=== PATIENT | female | born 1995 | race American Indian/Alaskan Native ===

== ENCOUNTER 2020-10-11 12:39 | Emergency (ER) | payer SELFPAY ==
[2020-10-11] MEDS ORDERED: ZIPRASIDONE MESYLATE 20 MG VIAL IM ONE (12:53)
--- NOTE | 2020-10-11 12:59 | Emergency Department Report ---
ED Psych HPI - General Stated Complaint: AMS Time Seen by Provider: 10/11/20 12:53 - History of Present Illness Initial Comments: Patient is 24 years old female with no significant past medical history or psychiatric history. Patient brought to the emergency room via EMS from home after patient father called and stated that patient has been with significant altered mental status. Patient has been hyperverbal and aggressive to family. Patient was very agitated upon EMS arrival patient have to be sedated with Haldol, Versed and Benadryl. Upon arrival to the ER patient is still very agitated and with significant racing thoughts and pressured speech and flights of ideas. Patient obviously responding to internal stimuli. Patient given Geodon 20 mg IM for sedation. MD Complaint: altered mental status -: days(s) (3) Associated Psychiatric Symptoms: racing thoughts, auditory hallucinations, visual hallucinations - Related Data Home Medications Medication Instructions Recorded Confirmed Last Taken No Known Home Medications [No 10/12/20 10/12/20 Unknown Reported Home Medications] Allergies Allergy/AdvReac Type Severity Reaction Status Date / Time No Known Allergies Allergy Unverified 10/11/20 23:17 ED Review of Systems ROS: Stated complaint: AMS Other details as noted in HPI Comment: Unobtainable due to pts medical conditions ED Past Medical Hx - Medications Home Medications: Home Medications Medication Instructions Recorded Confirmed Last Taken Type No Known Home Medications [No 10/12/20 10/12/20 Unknown History Reported Home Medications] ED Physical Exam - General General appearance: alert, other (Agitated.) - Head Head exam: Present: atraumatic, normocephalic, normal inspection - Eye Eye exam: Present: normal appearance - ENT ENT exam: Present: normal exam, mucous membranes moist - Neck Neck exam: Present: normal inspection, full ROM. Absent: tenderness, meningismus - Respiratory Respiratory exam: Present: normal lung sounds bilaterally - Cardiovascular Cardiovascular Exam: Present: regular rate, normal rhythm, normal heart sounds - GI/Abdominal GI/Abdominal exam: Present: soft, normal bowel sounds. Absent: distended, tenderness, guarding, rebound, rigid, organomegaly, mass, bruit, pulsatile mass, hernia - Extremities Exam Extremities exam: Present: normal inspection, full ROM, normal capillary refill. Absent: tenderness, pedal edema, joint swelling, calf tenderness - Back Exam Back exam: Present: normal inspection, full ROM. Absent: CVA tenderness (R), CVA tenderness (L) - Neurological Exam Neurological exam: Present: alert, oriented X3, CN II-XII intact, normal gait, reflexes normal. Absent: motor sensory deficit - Psychiatric Psychiatric exam: Present: agitated, manic - Skin Skin exam: Present: warm, intact, normal color ED Course Vital Signs 10/11/20 10/11/20 10/12/20 20:00 20:11 01:24 Temperature 98.6 F 97.6 F Pulse Rate 105 H 108 H Respiratory 18 18 18 Rate Blood Pressure 130/78 138/85 [Left] O2 Sat by Pulse 98 98 98 Oximetry 10/12/20 10/12/20 10/12/20 08:36 08:38 20:00 Temperature 98.6 F 98.6 F Pulse Rate 74 74 Respiratory 18 18 18 Rate Blood Pressure 110/89 110/89 [Left] O2 Sat by Pulse 98 98 100 Oximetry 10/12/20 10/13/20 10/13/20 20:46 01:34 07:59 Temperature 98.3 F 97.9 F 97.8 F Pulse Rate 89 70 83 Respiratory 18 18 18 Rate Blood Pressure 135/93 130/89 136/73 [Left] O2 Sat by Pulse 100 99 100 Oximetry ED Medical Decision Making - Lab Data Result diagrams: 10/11/20 13:56 10/12/20 20:17 Critical care attestation.: If time is entered above; I have spent that time in minutes in the direct care o f this critically ill patient, excluding procedure time. ED Disposition Clinical Impression: Schizophrenia with prominent negative symptoms, Acute psychosis Disposition: -01 TO HOME OR SELFCARE Is pt being admited?: No Condition: Stable Referrals: PRIMARY CARE, [Primary Care Provider] - 3-5 Days
[2020-10-11 14:39] LABS: Basophils % (Auto) 0.5 % (0.0-1.8); Eosinophils % (Auto) 0.1 % (0.0-4.3); Hematocrit 40.1 % (30.3-42.9); Hemoglobin 13.2 gm/dl (10.1-14.3); Lymphocytes # (Auto) 1.9 K/mm3 (1.2-5.4); Lymphocytes % (Auto) 19.8 % (13.4-35.0); Mean Corpuscular HGB Conc 33 % (30-34); Mean Corpuscular Volume 82 fl (79-97); Monocytes # (Auto) 0.7 K/mm3 (0.0-0.8); Platelet Count 320 K/mm3 (140-440); Red Blood Count 4.88 M/mm3 (3.65-5.03); Red Cell Distribution Width 15.9 % (13.2-15.2)
[2020-10-11 15:37] LABS: Blood Urea Nitrogen 7 mg/dL (7-17); Calcium 9.9 mg/dL (8.4-10.2); Hemolysis Index 0
[2020-10-11 15:38] LABS: BUN/Creatinine Ratio 10
[2020-10-11 18:20] LABS: Bilirubin,Urine NEG (Negative); Blood,Urine SM (Negative); Color,Urine Yellow (Yellow)
[2020-10-11 18:26] LABS: Amphetamine Screen,Urine Negative; Cocaine Screen,Urine Negative; Methadone Screen,Urine Negative; Opiate Screen,Urine Negative
[2020-10-11 18:39] LABS: Benzodiazepines Screen,Urine Positive; Cannabinoid Screen,Urine Positive
[2020-10-11] MEDS ORDERED: POTASSIUM CHLORIDE ER 20 MEQ TAB PO ONE (20:50)
[2020-10-12] MEDS ORDERED: POTASSIUM CHLORIDE ER 20 MEQ TAB PO ONE ×3 (01:04→12:09)
--- NOTE | 2020-10-12 08:47 | Consultation ---
History of Present Illness - Reason for Consult Consult date: 10/12/20 Reason for consult: MHE Requesting physician: CHARLIE FINLEY - History of Present Psychiatric Illness Per ED Provider: Patient is 24 years old female with no significant past medical history or psychiatric history. Patient brought to the emergency room via EMS from home after patient father called and stated that patient has been with significant altered mental status. Patient has been hyperverbal and aggressive to family. Patient was very agitated upon EMS arrival patient have to be sedated with Haldol, Versed and Benadryl. Upon arrival to the ER patient is still very agitated and with significant racing thoughts and pressured speech and flights of ideas. Patient obviously responding to internal stimuli. Patient given Geodon 20 mg IM for sedation. 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 When asked if the pt is or single, pt replied, "check the safe." "Please find me; please help me." Pt reports hx of drug use, "a while ago I took castaneda... Balbina... me.. me." When asked again about any recent drug use, pt states, "weed." Pt then said, "Repent Bishop PHIL Cuello." Pt denies any suicidal thoughts or plans; pt responds with a series of numbers. Pt denies any thoughts or plans to harm others. Pt is not oriented. Pt yells, "Wax Pot Tender Juliana save me!" Pt reports that she is currently, "at home in the pits." Pt begins listing Bible characters, "Mehul Peter, the sons of King [place]..." Pt has poor attention, poor memory, poor concentration. Pt has tangential thought processes with hyper roman catholic delusions and fixations. Pt is experiencing hallucinations, and pt appears to be responding to internal stimuli. Pt carries no mental health diagnosis. PSYCH HPI During my interview this a.m. patient kept smiling Smiling intermittently, sometimes Frowns her face, was selectively mute refused to participate in this interview and also answer questions that were being asked patient only has had to being fine when asked how she was doing.. Interview ended. Patient medical records were reviewed for initial admission to the hospital PAST PSYCHIATRIC HISTORY Diagnoses: Unknown Suicide attempts or Self-harm behavior: n/a Prior psychiatric hospitalizations: n/a Substance Abuse history: n/a Previous psychiatric medications tried: n/a Outpatient treatment: n/a PAST MEDICAL HISTORY: n/a Family Psychiatric History: None reported or documented SOCIAL HISTORY Marital Status: n/a Living Arrangements: n/a Employment Status: n/a Access to guns/weapons: n/a Education: n/a History of Abuse: n/a Legal History: n/a REVIEW OF SYSTEMS ROS cannot be reliably obtained from the patient due to her refusal to talk MENTAL STATUS EXAMINATION General Appearance and Behavior: Age appropriate, good hygiene, wearing appropriate clothes, good eye contact, uncooperative with questioning. Cooperation: Withdrawn Psychomotor Behavior: unremarkable and within normal limits Mood: good Affect and affective range: Flat Thought Process: N/A Thought Content: N/A Speech: Normal volume, Regular rate and rhythm Intellectual Functioning: N/A Suicidal Ideation: N/A l Homicidal Ideation: N/A Impulse Control: Impaired Insight and Judgment: Impaired Memory: N/A Attention: Normal, Orientation: Alert Diagnoses: Assessment and Plan - Psychiatric problem (1) Schizophrenia with prominent negative symptoms Current Visit: Yes Status: Acute Treatment Plan MEDICATIONS: Patient started on Haldol and Depakote. Risks, benefits and alternatives of medications discussed with the patient, questions answered and consent obtained from patient. PSYCHOTHERAPY: Supportive psychotherapy provided MEDICAL: Per primary team DELIRIUM PRECAUTIONS: Please re-orient patient frequently, keep lights on during the day, and minimize benzodiazepines and opiates as these medications could worsen patient's confusion. RN COMMUNITY: DISPOSITION: Do Recommend acute inpatient psychiatric hospitalization at this time LEGAL STATUS: 1013 FOLLOW-UP: Will follow Thank you for the consult. Please contact with any questions and/or concerns. Medications and Allergies Allergies Allergy/AdvReac Type Severity Reaction Status Date / Time No Known Allergies Allergy Unverified 10/11/20 23:17 Mental Status Exam - Vital signs Last Vital Signs Temp 98.6 F 10/12/20 08:38 Pulse 74 11/27/20 08:38 Resp 18 10/12/20 08:38 BP 110/89 10/12/20 08:38 Pulse Ox 98 10/12/20 08:38 Results Result Diagrams: 10/11/20 13:56 10/11/20 13:56 Abnormal lab results 10/11/20 10/11/20 10/11/20 Range/Units 13:56 13:56 13:56 MCH 27 L (28-32) pg RDW 15.9 H (13.2-15.2) % Seg Neutrophils % 72.6 H (40.0-70.0) % Potassium 3.4 L (3.6-5.0) mmol/L Carbon Dioxide 19 L (22-30) mmol/L Urine WBC (Auto) (0.0-6.0) /HPF Salicylates < 0.3 L (2.8-20.0) mg/dL Acetaminophen (10.0-30.0) ug/mL 10/11/20 10/11/20 Range/Units 13:56 Unknown MCH (28-32) pg RDW (13.2-15.2) % Seg Neutrophils % (40.0-70.0) % Potassium (3.6-5.0) mmol/L Carbon Dioxide (22-30) mmol/L Urine WBC (Auto) 10.0 H (0.0-6.0) /HPF Salicylates (2.8-20.0) mg/dL Acetaminophen 5.0 L (10.0-30.0) ug/mL All other labs normal. Assessment and Plan - Psychiatric problem (1) Schizophrenia with prominent negative symptoms Current Visit: Yes Status: Acute
[2020-10-12] MEDS: VALPROIC ACID 250 MG CAP PO SCH ×2 (13:49→22:00)
[2020-10-12] MEDS ORDERED: HALOPERIDOL 2 MG TAB PO SCH (22:00)
[2020-10-13 08:00] VITALS: BP 136/73
[2020-10-13] MEDS: VALPROIC ACID 250 MG CAP PO SCH (08:39)
--- NOTE | 2020-10-13 10:54 | Progress Note ---
Subjective - Reason for Consult Consult date: 10/13/20 Reason for consult: MHE Requesting physician: ROSAURA HORVATH - Chief Complaint Chief complaint: Psych Progress Nurse informed me this AM, patients family members up to 6 of them are in waiting room requesting patient to be discharged from hospital. Informed nurse patient can be discharged to family per their request. REVIEW OF SYSTEMS ROS cannot be reliably obtained from the patient due to her refusal to talk MENTAL STATUS EXAMINATION General Appearance and Behavior: Age appropriate, good hygiene, wearing appropr iate clothes, good eye contact, uncooperative with questioning. Cooperation: Withdrawn Psychomotor Behavior: unremarkable and within normal limits Mood: good Affect and affective range: Flat Thought Process: N/A Thought Content: N/A Speech: Normal volume, Regular rate and rhythm Intellectual Functioning: N/A Suicidal Ideation: N/A l Homicidal Ideation: N/A Impulse Control: Impaired Insight and Judgment: Impaired Memory: N/A Attention: Normal, Orientation: Alert Diagnoses: Assessment and Plan - Psychiatric problem (1) Schizophrenia with prominent negative symptoms Current Visit: Yes Status: Acute Treatment Plan MEDICATIONS: Risks, benefits and alternatives of medications discussed with the patient, questions answered and consent obtained from patient. PSYCHOTHERAPY: Supportive psychotherapy provided MEDICAL: Per primary team DELIRIUM PRECAUTIONS: Please re-orient patient frequently, keep lights on during the day, and minimize benzodiazepines and opiates as these medications could worsen patient's confusion. 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 Safety discharge to family LEGAL STATUS: 1013 rescinded FOLLOW-UP: Will sign off Thank you for the consult. Please contact with any questions and/or concerns. Mental Status Exam - Vital signs Last Vital Signs Temp 97.8 F 10/13/20 07:59 Pulse 83 10/13/20 07:59 Resp 18 10/13/20 07:59 BP 136/73 10/13/20 07:59 Pulse Ox 100 10/13/20 07:59 Assessment and Plan - Patient Problems (1) Schizophrenia with prominent negative symptoms Current Visit: Yes Status: Acute
== END 2020-10-13 11:13 | disposition home or self-care (01) ==
LOC: EEVIPCON 12:39 → ED 12:39
DX: F20.89 Other schizophrenia (principal)
CPT/HCPCS: 36415; 80048; 80307; 81001; 84703; 85025; 87086; 96372; 99284; J3486; 80320; G0480